=== PATIENT | female | born 1975 | race Two or more races ===

== ENCOUNTER 2017-09-05 20:39 | Emergency (ER) | payer MEDICAID ==
[~2017-09-05] VITALS: Ht 152.4 cm; Wt 63.5 kg
[2017-09-05 21:17] LABS: Basophils # (auto) 0 uL; Basophils % (auto) 0.2 % (0.0-2.0); Eosinophils # (auto) 0.1 uL; Eosinophils % (auto) 0.4 % (0.0-7.0); Hematocrit 45.9 % (36.0-46.0); Hemoglobin 15.2 g/dL (12.2-16.2); Lymphocytes # (auto) 1.6 uL; Lymphocytes % (auto) 9.4 % (10.0-50.0); Mean Corpuscular Hemoglobin 26.3 pg (28.0-32.0); Mean Corpuscular Hgb Conc. 33.1 g/dL (32.0-36.0); Mean Corpuscular Volume 79.3 fL (80.0-100.0); Monocytes # (auto) 0.7 uL; Monocytes % (auto) 4.3 % (0.0-12.0); Neutrophils # (auto) 14.5 uL; Neutrophils % (auto) 85.7 % (37.0-80.0); Nucleated Red Blood Cells % 0.1 %; Platelet Count (auto) 287 10^3/uL (140-450); Red Blood Cells 5.78 10^6/uL (4.0-5.20); Red Cell Distribution Width 14.4 % (11.8-14.3); White Blood Cell 16.9 10^3/uL (4.4-10.8)
[2017-09-05 21:30] LABS: INR 0.94 (0.9-1.15); Prothrombin Time 10.1 sec (9.27-12.13)
[2017-09-05 21:35] LABS: Albumin 3.7 g/dL (3.4-5.0); Bilirubin, Total 0.4 mg/dL (0.2-1.0); Potassium 3.6 mmol/L (3.5-5.1); Total Protein 8.3 g/dL (6.4-8.2)
[2017-09-05] MEDS ORDERED: ONDANSETRON HCL 4 MG/2 ML VIAL IV ONE (23:00)
[2017-09-05] MEDS ORDERED: HYDROmorphone HCL 2 MG/ML VL IV ONE (23:00)
[2017-09-05] MEDS ORDERED: SODIUM CHLORIDE 0.9% 1,000 ML IV ONE (23:00)
[2017-09-05] MEDS ORDERED: NALBUPHINE HCL 10 MG/1ml INJECTION ONE (23:12)
[2017-09-05] MEDS ORDERED: NALBUPHINE HCL 10 MG/1ml INJECTION IV ONE (23:15)
[2017-09-05 23:32] LABS: Urine Bacteria FEW /hpf (None Seen); Urine Blood Negative /uL (Negative); Urine Mucus FEW (None Seen); Urine Specific Gravity 1.017 (1.001-1.035); Urine WBC 10 /hpf (0 - 5)
[2017-09-06 01:15] VITALS: BP 98/69
[2017-09-06] MEDS ORDERED: cefTRIAXone 1GM/10ml IVPUSH 10 ML IV ONE (01:15)
== END 2017-09-06 01:35 | disposition home or self-care (01) ==
LOC: ER 20:39
DX: K52.9 Noninfective gastroenteritis and colitis, unspecified (principal); N39.0 Urinary tract infection, site not specified; Z90.49 Acquired absence of other specified parts of digestive tract; Z98.51 Tubal ligation status
CPT/HCPCS: 36415; 74176; 80053; 81001; 81025; 82150; 83690; 85025; 85610; 85730; 96361; 96374; 96375; 99285; J2300; J2405

== ENCOUNTER 2018-06-06 22:24 | Emergency (ER) | payer MEDICAID ==
[~2018-06-06] VITALS: Ht 152.4 cm; Wt 61.2 kg
[2018-06-06 22:56] VITALS: BP 128/86
[2018-06-07] MEDS ORDERED: KETOROLAC TROMETH 60MG/2ML VIAL IM ONE (00:15)
== END 2018-06-07 01:22 | disposition home or self-care (01) ==
LOC: ER 22:26
DX: M25.572 Pain in left ankle and joints of left foot (principal); Z90.49 Acquired absence of other specified parts of digestive tract; Z98.51 Tubal ligation status; Z87.442 Personal history of urinary calculi
CPT/HCPCS: 73600; 96372; 99283; J1885

== ENCOUNTER 2021-12-29 08:15 | Emergency (ER) | payer MEDICAID ==
[~2021-12-29] VITALS: Ht 152.4 cm; Wt 64.1 kg
[2021-12-29 08:31] VITALS: BP 138/81
[2021-12-29] MEDS ORDERED: IBUP800T27 PO (09:05)
== END 2021-12-29 09:16 | disposition home or self-care (01) ==
LOC: ER 08:15
DX: S53.401A Unspecified sprain of right elbow, initial encounter (principal); Z90.49 Acquired absence of other specified parts of digestive tract; Z98.51 Tubal ligation status; Z87.442 Personal history of urinary calculi; W01.0XXA Fall on same level from slipping, tripping and stumbling without subsequent striking against object, initial encounter; Y93.89 Activity, other specified; Y92.89 Other specified places as the place of occurrence of the external cause; Y99.8 Other external cause status
CPT/HCPCS: 29105; 73080